=== PATIENT | female | born 1960 | race Caucasian/White ===

== ENCOUNTER → 2016-04-03 | Outpatient (CLI) | payer MEDICAID ==
--- NOTE | 2016-04-03 14:14 | DX ---
Left Wrist, Three Views Left Hand, Three Views Left Wrist History: Wrist pain after injury. Findings: Normal mineralization and alignment. Mild degenerative change is seen at the first carpomet acarpal joint with mild subarticular sclerosis and spurring. No evidence for acute fracture or disloc ation. There is mild ulnar negative variance. No evidence for avascular necrosis of the lunate. Impression: Mild degenerative change first carpometacarpal joint. No evidence for acute fracture. Left Hand History: Hand pain after injury. Findings: Normal mineralization and alignment. Mild degenerative change is seen at the first carpomet acarpal joint. There is mild periarticular spurring at the DIP joints. No evidence for periarticular erosion. No evidence for acute fracture or dislocation. Impression: Mild degenerative change as above. No evidence for acute fracture.
== END ==
LOC: FLAB 11:59
PROVIDERS: ATTEND Family Medicine
DX: M25.532 Pain in left wrist (principal); M79.642 Pain in left hand